=== PATIENT | male | born 1945 | race Caucasian/White ===

== ENCOUNTER 2019-04-03 14:23 | Inpatient (IN) | payer MEDICARE, OTHER ==
[~2019-04-03] VITALS: Ht 182.9 cm; Wt 79.4 kg
--- NOTE | 2019-04-03 14:30 | NUR ---
BIB EMS C/O INCREASING CONFUSION AND WANDERING. PATIENT AOX1-2 WITH CONFUSION, NEEDS ATTENDED, KEPT COMFORTABLE.
[2019-04-03 15:30] LABS: BASOPHILS # (AUTO) 0.1 /CMM (0.0-0.2); BASOPHILS % (AUTO) 1.6 % (0.0-2.0); HEMATOCRIT 33 % (39-51); HEMOGLOBIN 11.2 g/dL (13.5-17.5); LYMPHOCYTES # (AUTO) 1.7 /CMM (0.8-4.8); LYMPHOCYTES % (AUTO) 20.6 % (20.0-44.0); MEAN CORPUSCULAR HGB CONC 34 g/dl (31.0-36.0); MEAN CORPUSCULAR VOLUME 88 fL (80-96); MONOCYTES % (AUTO) 11.7 % (2.0-12.0); NEUTROPHILS # (AUTO) 5.2 /CMM (1.8-8.9); NEUTROPHILS % (AUTO) 61.1 % (43.0-81.0); PLATELET COUNT (AUTO) 391 /CMM (150-450); WHITE BLOOD COUNT (AUTO) 8.5 K/uL (4.3-11.0)
[2019-04-03 15:40] LABS: CALCIUM, SERUM 9.2 mg/dL (8.5-10.1); CARBON DIOXIDE 27 mmol/L (21-32); CHLORIDE 103 mmol/L (98-107); GLUCOSE 114 mg/dL (74-106); POTASSIUM 4.3 mmol/L (3.5-5.1); SODIUM SERUM 138 mmol/L (136-145); UREA NITROGEN, BLOOD 22 mg/dL (7-18)
[2019-04-03 15:57] LABS: ALANINE AMINOTRANSFERASE 16 U/L (12-78); ALBUMIN 3.6 g/dL (3.4-5.0); ALKALINE PHOSPHATASE 84 U/L (46-116); ASPARTATE AMINOTRANSFERASE 20 U/L (15-37); BILIRUBIN,DIRECT 0.1 mg/dL (0.0-0.2); BILIRUBIN,TOTAL 0.3 mg/dL (0.2-1.0); LIPASE 169 U/L (73-393); TOTAL PROTEIN, SERUM 7.5 g/dL (6.4-8.2)
[2019-04-03 15:58] LABS: APPEARANCE,URINE Clear (CLEAR); BILIRUBIN,URINE Negative (NEGATIVE); BLOOD, URINE Trace-intact Ery/uL (NEGATIVE); COLOR,URINE Yellow (YELLOW); KETONES,URINE Negative (NEGATIVE); LEUKOCYTE ESTERASE ,URINE Negative (NEGATIVE); NITRITE, URINE Negative (NEGATIVE); PROTEIN,URINE Negative (NEGATIVE); UGLUCOSE Negative (NEGATIVE); UROBILINOGEN,URINE 0.2 EU/dL (0.2)
[2019-04-03 16:10] LABS: BACTERIA,URINE Rare /HPF (None Seen); RBC,URINE 0-2 /HPF (0-2); SQUAMOUS EPITHELIAL CELL,UR Rare /HPF (None Seen); WBC,URINE 0-2 /HPF (0-3)
[2019-04-03 16:37] LABS: BAND % (MANUAL) 2 % (0.0-5.0); EOSINOPHILS % (MANUAL) 10 % (0-4); LYMPHOCYTES % (MANUAL) 21 % (16-48); MONOCYTES % (MANUAL) 9 % (0-11.0); NEUTROPHILS % (MANUAL) 58 (42-76)
--- NOTE | 2019-04-03 16:41 | NUR ---
CALLED [phone]
--- NOTE | 2019-04-03 16:46 | NUR ---
REGULAR MEAL ORDERED.
--- NOTE | 2019-04-03 17:10 | NUR ---
REPORT GIVEN TO ANGEL AT [facility]
--- NOTE | 2019-04-03 17:24 | NUR ---
PATIENT AMBULATORY, CONFUSED AT TIMES, WAS ABLE TO REDIRECT. NO DISTRESS NOTED.
--- NOTE | 2019-04-03 17:35 | NUR ---
IV removed. Catheter intact and site benign. Pressure and 4x4 applied to site. No bleeding noted.
--- NOTE | 2019-04-03 19:40 | NUR ---
REPORT GIVEN TO HEARING IMPAIRED ITINERANT TEACHER, COPIES OF RESULTS GIVEN. NEEDS ATTENDED. KEPT COMFORTABLE. PATIENT AMBULATORY WITH STEADY GAIT. NO DISTRESS NOTED. LEFT TO [facility] IN STABLE CONDITION.
--- NOTE | 2019-04-03 20:12 | NUR ---
PATIENT REFUSED TO GET ON THE GURNEY, PATIENT WAS AGITATED AND COMBATIVE TO STAFF. DR. VALEDRRAMA MADE AWARE.
--- NOTE | 2019-04-03 20:13 | NUR ---
DISCHARGE CANCELLED. PATIENT WILL BE SEEN BY CRISIS TEAM CLINICIAN, UMESH GARDNER .
[2019-04-03 20:23] LABS: ACETAMINOPHEN 0 ug/ml (10-30); ALCOHOL, BLOOD < 3 mg/dL (0-0); SALICYLATE 1.8 mg/dL (2.8-20.0)
[2019-04-03] MEDS ORDERED: OLANZAPINE 10 MG VIAL IM ONE ×2 (21:03→21:30)
[2019-04-03] MEDS ORDERED: DOCU-141 PO (21:32)
[2019-04-03] MEDS ORDERED: MULT-213 PO (21:32)
[2019-04-03] MEDS ORDERED: ASPI-1169 PO (21:32)
--- NOTE | 2019-04-03 21:33 | NUR ---
REPORT GIVEN TO DENIZ GARDNER.
--- NOTE | 2019-04-03 22:14 | NUR ---
PATIENT TRANSFERRED TO ROOM 214 IN STABLE CONDITION. NO DISTRESS NOTED. NEEDS ATTENDED.
--- NOTE | 2019-04-03 22:35 | NUR ---
RN NOTES: PLACED CALLED TO [facility] AND LEFT MESSAGE TO JOAQUIN SINCLAIR# [phone] REGARDING ABOUT ADMISSION .
[2019-04-03] MEDS ORDERED: MAG HYDROX/AL HYDROX/SIMETH 30 ML UDC PO PRN (23:00)
[2019-04-03] MEDS ORDERED: MAGNESIUM HYDROXIDE 30 ML UDC PO PRN (23:00)
[2019-04-03] MEDS ORDERED: ACETAMINOPHEN 325 MG TABLET PO PRN (23:00)
[2019-04-03] MEDS ORDERED: ZOLPIDEM TARTRATE 5 MG TABLET PO PRN (23:00)
[2019-04-03 23:29] VITALS: BP 132/80
[2019-04-03] MEDS ORDERED: BLOOD SUGAR DIAGNOSTIC 1 EACH STRIP IN ONE (23:30)
--- NOTE | 2019-04-04 00:03 | NUR ---
ADMISSION NOTES: ADMITTED THIS 74Y/O FEMALE PATIENT ADMIT FROM [facility] ,ER / INTIALLY FROM [facility], ADMITTED TO GPS ON 5150 HOLD ,GAVELY DISABLE , PER HOLD GRAVELY DISABLE, CONFUSED,DISORGANIZED AND DISORIENTED, AT THE FACILITY BECAME COMBATIVE TOWARDS STAFF MEMBER,UPON FACE TO FACE ASSESSMENT PATIENT IS A&O X1 , CONFUSED ,DISORGNIZED, UNCOOPERTIVE ,EASILY GETS AGITATED, PT. NEEDS FREQUENTLY REDIRECTIONS DENIES SI /HI AT THIS TIME, PT. IS POOR HISTORIAN, POOR INSIGHT ,POOR JUDGEMENT , PT. REFUSED TO SIGNS ADMISSION CONSENT PAPERS , DUE TO MENTAL STATUS/ CONFUSED, PT. REFUSED INTITAALY BLOOD SUGAR CHECK , ENCOURAGED, EXPLAINED RISKS AND BENEFITS STILL REFUSED, PER PT. I DONT WANTS CHECK , PT. REFUSED SKIN ASSESSMENT ENCOURAGED X3 EXPLINED RISKS AND BENEFITS , STILL REFUSED BOTH MD AWARE AND NOTIFIED OF THE ADMISSION, BELONGINGS CONTRABAND WERE DONE , NURSING ASSESSMENT DONE ,PT. RIGHTS DISCUSS BY AXLE TURNER , PROVIDE THE PT. WITH HANDBOOK, AND MEDICATIONS GUIDE, ENVIRONMENTAL SAFETY CHECK DONE, ENCOURAGED PT. VERBALIZED ANY FEELING CONCERN TO STAFF, ORIENT TO UNIT POLICY, NO ACUTE DISTRESS NOTED,VITAL SIGNS WNL ,DENIES ANY PAIN AT THIS TIME,WILL CONTINUE TO MONITOR FOR Q15 SAFETY AND BEHAVIOR.
[2019-04-04] MEDS: LORAZEPAM 1 MG TABLET PO PRN ×2 (02:27→21:36)
--- NOTE | 2019-04-04 02:30 | NUR ---
RN NOTES: PT. C/O ANXIOUS, PARANOID , RESTLESS , ATIVAN 1 MG PO PRN GIVEN PER PT. REQUEST, WILL CONTINUE TO MONITOR .
--- NOTE | 2019-04-04 05:41 | NUR ---
PATIENT REFUSED BODY ASSESSMENT PATIENT REFUSED FULL BODY SKIN ASSESSMENT BECOMES AGITATED, RESTLESS/ANXIOUS, PARANOID, ENCOURAGED X3 , RISKS AND BENEFITS EXPLAINED, STILL REFUSED, PATIENT CONTINUED TO STRONGLY REFUSE FULL BODY SKIN ASSESSMENT, VISUALLY NOTED UPPER EXTREMITIES WITH SKIN DISCOLORATIONS / BRUISES , PICTURES TAKEN AND PLACED IN THE CHART.WILL CONTINUITY WITH CARE.
--- NOTE | 2019-04-04 05:59 | NUR ---
RN NOTES : PLACED CALL TO [facility] ,LEFT MESSAGE AT THIS NUMBER # [phone] .
--- NOTE | 2019-04-04 06:02 | NUR ---
RN NOTES: PLACED CALLED TO [facility] AND LEFT MESSAGE TO JOAQUIN SINCLAIR# [phone] REGARDING ABOUT ADMISSION
[2019-04-04] MEDS ORDERED: Z GUARD REMEDY 2 OZ OINT TP PRN (06:30)
--- NOTE | 2019-04-04 06:35 | NUR ---
GPS RN CLOSING NOTE: PATIENT EASILY AGITAED , UNCOOPERATIVE,DURING IN SHIFT, NO ACUTE DISTRESS NOTED. DENIES PAIN OR DISCOMFORT ,DENIES SI/HI/AVH AT THIS TIME. SAFETY PRECAUTIONS IMPLEMENTED.ALL NEEDS ATTENDED AND ANTICIPATED, ENCOURGED FOR VERBALIZED ANY FEELING ,BED ALARM ON AND IN LOCKED POSITION. WILL CONTINUE TO MONITOR FOR PT'S SAFETY.
--- NOTE | 2019-04-04 07:30 | NUR ---
received pt. this am in bed.alert and oriented x1.very confused.
[2019-04-04 08:00] VITALS: BP 136/84
[2019-04-04] MEDS: ASPIRIN 81 MG TAB.CHEW PO SCH (10:21)
[2019-04-04] MEDS: MULTIVIT W/MINERALS 1 TAB TABLET PO SCH (10:21)
[2019-04-04] MEDS: DOCUSATE SODIUM 100 MG CAPSULE PO SCH (10:21)
--- NOTE | 2019-04-04 11:30 | NUR ---
in harley chair.cooperative. restless at times.
[2019-04-04 16:00] VITALS: BP 149/90
[2019-04-04 21:08] VITALS: BP 143/82
[2019-04-04] MEDS ORDERED: QUETIAPINE FUMARATE 25 MG TABLET PO SCH (22:00)
[2019-04-05 08:00] VITALS: BP 124/73
[2019-04-05 08:32] LABS: BASOPHILS # (AUTO) 0.1 /CMM (0.0-0.2); BASOPHILS % (AUTO) 1.4 % (0.0-2.0); EOSINOPHILS % (AUTO) 3.3 % (0.0-6.0); HEMATOCRIT 35 % (39-51); HEMOGLOBIN 11.7 g/dL (13.5-17.5); LYMPHOCYTES # (AUTO) 1.1 /CMM (0.8-4.8); MEAN CORPUSCULAR HGB CONC 33 g/dl (31.0-36.0); MEAN CORPUSCULAR VOLUME 88 fL (80-96); MONOCYTES # (AUTO) 0.5 /CMM (0.1-1.30); MONOCYTES % (AUTO) 6.9 % (2.0-12.0); NEUTROPHILS # (AUTO) 5.5 /CMM (1.8-8.9); NEUTROPHILS % (AUTO) 73.4 % (43.0-81.0); PLATELET COUNT (AUTO) 378 /CMM (150-450); RED BLOOD CELL COUNT(AUTO) 4.02 MIL/uL (4.5-6.0); WHITE BLOOD COUNT (AUTO) 7.5 K/uL (4.3-11.0)
[2019-04-05 08:34] LABS: CALCIUM, SERUM 8.9 mg/dL (8.5-10.1); CREATININE 0.9 mg/dL (0.6-1.3); POTASSIUM 4.2 mmol/L (3.5-5.1)
[2019-04-05] MEDS: ASPIRIN 81 MG TAB.CHEW PO SCH (08:41)
[2019-04-05] MEDS: DOCUSATE SODIUM 100 MG CAPSULE PO SCH (08:41)
[2019-04-05] MEDS: MULTIVIT W/MINERALS 1 TAB TABLET PO SCH (08:41)
[2019-04-05 16:03] VITALS: BP 140/87
[2019-04-05 20:07] VITALS: BP 142/77
[2019-04-05] MEDS: QUETIAPINE FUMARATE 25 MG TABLET PO SCH (21:28)
[2019-04-06 08:00] VITALS: BP 137/87
--- NOTE | 2019-04-06 09:00 | NUR ---
RN NOTE-PT CALM AND COOPERATIVE AT THIS TIME DENIES SI/HI NO C/O PAIN OR DISCOMFORT MED COMPLIANT.WILL CONT. TO FOLLOW FOR BEHAVIOR AND SAFETY.
[2019-04-06] MEDS: MULTIVIT W/MINERALS 1 TAB TABLET PO SCH (09:10)
[2019-04-06] MEDS: ASPIRIN 81 MG TAB.CHEW PO SCH (09:11)
[2019-04-06] MEDS: DOCUSATE SODIUM 100 MG CAPSULE PO SCH (09:11)
--- NOTE | 2019-04-06 10:34 | NUR ---
Facility Contact: AUDREY called [facility] ([phone]) and spoke to Hilary who stated that the pt can return to the facility once the pt is stable. AUDREY stated that the pt is far too confused to answer questions on the psychosocial. AUDREY received collateral information from Hilary regarding the pt. She stated that the pts son could not be reached and has not been in contact with pt in over 50 years.
--- NOTE | 2019-04-06 10:34 | NUR ---
Family Contact: SW called the pts son, Cj Augustin ([phone]), and was informed that this is not the pts son's number.
--- NOTE | 2019-04-06 12:54 | NUR ---
Initial Discharge Plan: Pt currently resides at [facility] located at [address] [place] [address]; ([phone]). Per pt, he was unable to state whether he would like to return to the facility. Per Hilary ([phone]) from [facility], pt can return to the facility upon discharge. SW will work with the pt and the MD regarding appropriate discharge planning. SW will form a safe and proper discharge.
--- NOTE | 2019-04-06 14:30 | NUR ---
RN NOTE- TO RADIOLOGY W THIS RN. CT HEAD.
[2019-04-06 16:00] VITALS: BP 120/68
[2019-04-06] MEDS: LORAZEPAM 1 MG TABLET PO PRN (20:06)
--- NOTE | 2019-04-06 20:08 | NUR ---
GPS RN NOTE: AGITATION PATIENT IS RESTLESS & ANXIOUS AT THIS TIME, GETTING AGITATED. PRN ATIVAN 1 MG 1 TAB PO GIVEN. WILL CONTINUE TO MONITOR CLOSELY FOR ANY CHANGES.
[2019-04-06 20:49] VITALS: BP 134/90
[2019-04-06] MEDS: QUETIAPINE FUMARATE 25 MG TABLET PO SCH (21:32)
[2019-04-07] MEDS: Z GUARD REMEDY 2 OZ OINT TP PRN (03:08)
[2019-04-07] MEDS: LORAZEPAM 1 MG TABLET PO PRN ×2 (06:28→20:12)
--- NOTE | 2019-04-07 06:29 | NUR ---
GPS RN NOTE: ANXIETY/AGITATION PATIENT IS ANXIOUS & RESTLESS, BANGING ON DEION CHAIR, AGITATED. ATIVAN 1 MG PO PRN GIVEN ORDERED.
[2019-04-07 08:00] VITALS: BP 129/80
[2019-04-07] MEDS: MULTIVIT W/MINERALS 1 TAB TABLET PO SCH (08:43)
[2019-04-07] MEDS: DOCUSATE SODIUM 100 MG CAPSULE PO SCH (08:43)
[2019-04-07] MEDS: ASPIRIN 81 MG TAB.CHEW PO SCH (08:43)
--- NOTE | 2019-04-07 15:59 | NUR ---
Group Note: Pt was encouraged to attend group therapy on 04/07/19 at 2pm discussing the topic of concerns around discharge plan. Pt appeared to be confused, disoriented and disorganized. Pt was unable to state where he currently was and was unable to determine a discharge plan. SW attempted to inform him that he would be returning to [facility] but the pt appeared to be confused about the placement that he came from. SW deemed the pt inappropriate for group due to his cognitive impairment.
[2019-04-07 16:00] VITALS: BP 170/106
[2019-04-07] MEDS ORDERED: CLONIDINE HCL 0.1 MG TABLET PO STA (16:30)
[2019-04-07] MEDS ORDERED: CLONIDINE HCL 0.1 MG TABLET PO PRN (17:00)
[2019-04-07 18:10] VITALS: BP 101/71
--- NOTE | 2019-04-07 18:50 | NUR ---
RN NOTE :Patient BP 170/110 DEMITRY TECHNICAL MAINTENANCE SPECIALIST NTIFIED WITH NEW ORDER MEDICATED WITH CATAPRES 0.2MG PO , BP 101 /70 .
--- NOTE | 2019-04-07 20:00 | NUR ---
GPS RN NOTE PER AM RN REPORT, PATIENT HAD HIGH BP DURING DAY SHIFT & CATAPRES TAB WAS GIVEN ORDERED. AT 1999, BP IS 134/87, 81, 18, 97.8, 99. WILL CONTINUE TO MONITOR THE PAT. FOR ANY CHANGES.
[2019-04-07 20:09] VITALS: BP 134/87
--- NOTE | 2019-04-07 20:14 | NUR ---
GPS RN NOTE: ANXIETY PATIENT IS VERY ANXIOUS, RESTLESS, PACING THE HALLWAY, EASILY AGITATED. PRN ATIVAN 1 MG 1 TAB PO GIVEN.
[2019-04-07] MEDS: QUETIAPINE FUMARATE 25 MG TABLET PO SCH (22:17)
[2019-04-08 08:00] VITALS: BP 132/79
[2019-04-08] MEDS: DOCUSATE SODIUM 100 MG CAPSULE PO SCH (08:50)
[2019-04-08] MEDS: MULTIVIT W/MINERALS 1 TAB TABLET PO SCH (08:50)
[2019-04-08] MEDS: ASPIRIN 81 MG TAB.CHEW PO SCH (08:50)
[2019-04-08 16:00] VITALS: BP_SYST 120; BP_SYST 149; BP_DIAS 68; BP_DIAS 84
--- NOTE | 2019-04-08 16:04 | NUR ---
GROUP NOTE: Pt was present in group on this day discussing "discharge plan." Pt was sitting in group but was unable to participate due to cognitive impairment. Pt unable to engage in group topic.
--- NOTE | 2019-04-08 18:00 | NUR ---
UP IN DEION CHAIR MOST OF DAY,DUE TO WANDERING AND CONFUSION.
--- NOTE | 2019-04-08 19:20 | NUR ---
GPS RN OPENING NOTES ALERT AND ORIENTED X 1-2. BREATHING REGULAR AND UNLABORED ON ROOM AIR. NO S/S OF PAIN.DISCOMFORT NOTED AT THIS TIME. REMAINED CALM AND COOPERATIVE, MED COMPLIANT. WILL CONTINUE TO MONITOR FOR SAFETY AND BEHAVIOR.
[2019-04-08 20:30] VITALS: BP 156/89
[2019-04-08] MEDS: QUETIAPINE FUMARATE 100 MG TABLET PO SCH (21:17)
[2019-04-08 22:00] VITALS: BP 156/89
[2019-04-08] MEDS: LORAZEPAM 1 MG TABLET PO PRN (23:40)
--- NOTE | 2019-04-08 23:45 | NUR ---
GPS RN NOTES NOTED WITH ANXIETY MANIFESTED BY INABILITY TO STAY STILL, ATIVAN 1MG GIVEN BY MOUTH. NON-PHARMACOLOGICAL INTERVENTIONS PROVIDED. WILL CONTINUE TO MONITOR.
--- NOTE | 2019-04-09 06:15 | NUR ---
GPS RN CLOSING NOTES PATIENT IN BED ASLEEP WITH NO S/S OF DISTRESS NOTED. NO S/S OF PAIN/DISCOMFORT OBSERVED. WILL ENDORSE TO MORNING SHIFT FOR CONTINUITY OF CARE.
[2019-04-09 08:00] VITALS: BP 132/73
[2019-04-09] MEDS: DOCUSATE SODIUM 100 MG CAPSULE PO SCH (08:39)
[2019-04-09] MEDS: MULTIVIT W/MINERALS 1 TAB TABLET PO SCH (08:39)
[2019-04-09] MEDS: ASPIRIN 81 MG TAB.CHEW PO SCH (08:39)
--- NOTE | 2019-04-09 09:13 | NUR ---
RN NOTE: RECEIVED PT SITTING IN DAY ROOM. NO ACUTE DISTRESS NOTED. VSS, AFEBRILE. PT A+OX1. PT HAS THOUGHT BLOCKING AND TANGENTIAL SPEECH. PT HAS DIFFICULTY MAKING NEEDS KNOWN. PT NEEDS FREQUENT REORIENTATION AND DIRECTION. PT DENIES CURRENT SI/HI. PT IS COMPLIANT WITH MEDICATION ADMINISTRATION AND PLAN OF CARE; WILL CONT TO MONITOR PT PER GPS PROTOCOL
--- NOTE | 2019-04-09 15:02 | NUR ---
Group Note: Pt was encouraged to attend group therapy on 04/09/19 at 2pm discussing social supports. Pt appeared to be confused, disoriented and disorganized. Pt was unable to state where he currently was and was unable to discuss the topic. Pt presented in his room and was asleep when the SW woke him up for group and he refused. SW deemed the pt inappropriate for group due to his cognitive impairment.
[2019-04-09 16:00] VITALS: BP 133/78
[2019-04-09 20:05] VITALS: BP 143/94
[2019-04-09] MEDS: QUETIAPINE FUMARATE 100 MG TABLET PO SCH (21:08)
[2019-04-09] MEDS: LORAZEPAM 1 MG TABLET PO PRN (23:07)
--- NOTE | 2019-04-09 23:08 | NUR ---
GPS RN NOTES: PRN ATIVAN UPON DOING ROUNDS PT IS ANXIOUS. CHECKED VITALS WNL. BREATHING EVEN AND UNLABORED. OFFERED ATIVAN 1MG PO PRN ORDERED. PT AGREED AND TOLERATED MEDICATION WELL. CONTINUE TO MONITOR.
[2019-04-10 08:00] VITALS: BP 132/84
[2019-04-10] MEDS: ASPIRIN 81 MG TAB.CHEW PO SCH (08:51)
[2019-04-10] MEDS: DOCUSATE SODIUM 100 MG CAPSULE PO SCH (08:51)
[2019-04-10] MEDS: MULTIVIT W/MINERALS 1 TAB TABLET PO SCH (08:51)
--- NOTE | 2019-04-10 10:03 | NUR ---
GPS RN OPENING NOTE: RECEIVED PT SITTING UP IN BED INTERACTING WITH ROOMMATE. NO ACUTE DISTRESS NOTED. VSS, AFEBRILE. PT AOX1. PT HAS DIFFICULTY MAKING NEEDS KNOWN. PT NEEDS FREQUENT REORIENTATION AND DIRECTION. PT DENIES CURRENT SI/HI. PT IS COMPLIANT WITH MEDICATION ADMINISTRATION AND PLAN OF CARE; WILL CONT TO MONITOR PT PER GPS PROTOCOL
[2019-04-10] MEDS: LORAZEPAM 1 MG TABLET PO PRN (15:46)
[2019-04-10 16:00] VITALS: BP 131/99
--- NOTE | 2019-04-10 16:10 | NUR ---
GPS RN: PRN ATIVAN PT AGITATED, RESTLESS, UNABLE TO SIT STILL. OFFERED ATIVAN PO 1MG ORDERED. WILL CONTINUE TO MONITOR Q15 FOR MOOD, SAFETY AND BEHAVIOR
[2019-04-10] MEDS: QUETIAPINE FUMARATE 100 MG TABLET PO SCH (21:13)
[2019-04-11] MEDS: Z GUARD REMEDY 2 OZ OINT TP PRN (06:36)
[2019-04-11 08:00] VITALS: BP 147/70
[2019-04-11] MEDS: ASPIRIN 81 MG TAB.CHEW PO SCH (08:24)
[2019-04-11] MEDS: MULTIVIT W/MINERALS 1 TAB TABLET PO SCH (08:24)
[2019-04-11] MEDS: DOCUSATE SODIUM 100 MG CAPSULE PO SCH (08:24)
--- NOTE | 2019-04-11 09:00 | NUR ---
RN NOTE- PT CONFUSED WITH EVEN SIMPLE COMMANDS. DOESN'T UNDERSTAND HOW TO SIT OR FOLLOW DIRECTION TO STAND OR EAT. ASSISTED AND PROMPTED W ALL CARE AND ADLS. PT NEEDS FREQUENT REORIENTATION AND DIRECTION. PT DENIES CURRENT SI/HI. PT IS COMPLIANT WITH MEDICATION ADMINISTRATION AND PLAN OF CARE; WILL CONT TO MONITOR PT PER GPS PROTOCOL
[2019-04-11 16:00] VITALS: BP 137/57
[2019-04-11] MEDS: LORAZEPAM 1 MG TABLET PO PRN ×2 (16:24→22:08)
--- NOTE | 2019-04-11 16:28 | NUR ---
RN NOTE-AGITATION/ PT WITH ANXIETY, ATTEMPTING TO CLIMB OUT OF CHAIR, REACHING OUT TO OTHER RESIDENTS AND STAFF. INAPPROPRIATE PHYSICAL CONTACT. ATIVAN 1 MG GIVEN.
--- NOTE | 2019-04-11 17:30 | NUR ---
RN NOTE-AGITATION/RX EFFECTIVENESS/ PRN MEDICATION ATIVAN 1 MG PROVED EFFECTIVE AT DECREASING AGITATION AND BEHAVIORS
[2019-04-11 20:05] VITALS: BP 159/90
[2019-04-11] MEDS: QUETIAPINE FUMARATE 100 MG TABLET PO SCH (22:08)
--- NOTE | 2019-04-11 22:11 | NUR ---
GPS RN NOTES PT AGITATED, RESTLESS, UNCOOPERATIVE. REFUSING REDIRECTION. ATIVAN 1MG GIVEN PO PER ORDER. WILL CONTINUE TO MONITOR.
[2019-04-12 08:00] VITALS: BP 159/69
[2019-04-12] MEDS: LORAZEPAM 1 MG TABLET PO PRN (08:24)
[2019-04-12] MEDS: DOCUSATE SODIUM 100 MG CAPSULE PO SCH (08:24)
[2019-04-12] MEDS: MULTIVIT W/MINERALS 1 TAB TABLET PO SCH (08:24)
[2019-04-12] MEDS: ASPIRIN 81 MG TAB.CHEW PO SCH (08:24)
--- NOTE | 2019-04-12 08:34 | NUR ---
RN NOTE-AGITATION/ PT CLIMBING OOB AND ATTEMPTING TO GRAB AT NURSE AND STAFF. ATIVAN 1 MG GIVEN
--- NOTE | 2019-04-12 09:37 | NUR ---
RN NOTE- RX AGITATION/ PT BEHAVIOR DECREASED AFTER ATIVAN ADFMINISTRATION.
--- NOTE | 2019-04-12 10:15 | NUR ---
RN NOTE- PT CLIMBING OOB AND CHAIR, GRABBING AT STAFF AND PATIENTS. INAPPROPRIATE AT TIMES. ASSISTED AND PROMPTED W ALL CARE AND ADLS. PT NEEDS FREQUENT REORIENTATION AND DIRECTION. PT DENIES CURRENT SI/HI. PT IS COMPLIANT WITH MEDICATION ADMINISTRATION AND PLAN OF CARE; WILL CONT TO MONITOR PT PER GPS PROTOCOL
[2019-04-12 16:00] VITALS: BP 155/95
[2019-04-12 20:24] VITALS: BP 115/65
[2019-04-12] MEDS: QUETIAPINE FUMARATE 100 MG TABLET PO SCH (21:10)
--- NOTE | 2019-04-12 22:10 | NUR ---
GPS RN NOTES: PT REFUSED WEEKLY SKIN PICTURE ASSESSMENT PT REFUSED WEEKLY SKIN PICTURE ASSESSMENT. PT STATED, "NO. ID RATHER NOT.PLS NO." EXPLAIN RISKS AND BENEFITS. PT STILL REFUSED X3. CONTINUE TO MONITOR.
[2019-04-13 08:00] VITALS: BP 152/81
[2019-04-13] MEDS: MULTIVIT W/MINERALS 1 TAB TABLET PO SCH (08:28)
[2019-04-13] MEDS: ASPIRIN 81 MG TAB.CHEW PO SCH (08:28)
[2019-04-13] MEDS: DOCUSATE SODIUM 100 MG CAPSULE PO SCH (08:28)
[2019-04-13] MEDS: LORAZEPAM 1 MG TABLET PO PRN ×2 (08:40→16:10)
--- NOTE | 2019-04-13 08:40 | NUR ---
RN NOTE-AGITATION/ PT W ANXIETY. ATTEMPTS TO GET OOB AND CHAIR AND WALK UNASSISTED. ATIVAN 1 MG GIVEN.
--- NOTE | 2019-04-13 09:00 | NUR ---
RN NOTE- PT ANXIOUS AT TIMES. ASSISTED AND PROMPTED W ALL CARE AND ADLS. ATIVAN GIVEN TO DECREASE SYMPTOMS. PT NEEDS FREQUENT REORIENTATION AND DIRECTION. PT DENIES CURRENT SI/HI. PT IS COMPLIANT WITH MEDICATION ADMINISTRATION AND PLAN OF CARE; WILL CONT TO MONITOR PT PER GPS PROTOCOL
--- NOTE | 2019-04-13 09:54 | NUR ---
RN NOTE- AGITATION RX EFFECTIVE, PT CALM
--- NOTE | 2019-04-13 15:59 | NUR ---
Facility Contact: AUDREY called [facility] ([phone]) and spoke to Margaret and informed her that the pt is going to be discharged on Saturday. Margaret stated that she would send the Physicians report once again.
[2019-04-13 16:00] VITALS: BP 138/90
--- NOTE | 2019-04-13 16:17 | NUR ---
RN NOTE-AGITATION/ PT CLIMBING OUT OF CHAIR, RESTLESS AND IRRITABLE. ATIVAN 1 MG GIVEN AT THIS TIME.
--- NOTE | 2019-04-13 19:00 | NUR ---
GPS RN opening notes Received Pt sitting in gerichair in the hallway. Pt is alert and orientedX1, anxious, forgetful,confused, hyperverbal, disorganized and med compliant. Respiration is normal in room air. No SOB. No S/S of distress noted. Offered fluids and snacks. Pt denies SI/HI at this time. Reality orientation provided. Safety precautions is maintained. Will continue to monitor for mood safety and behavior Q 15 mins checks according to [facility] hospital protocol.
[2019-04-13 20:00] VITALS: BP 152/80
[2019-04-13 20:03] VITALS: BP 152/80
[2019-04-13 20:24] VITALS: BP 149/74
[2019-04-13] MEDS: QUETIAPINE FUMARATE 100 MG TABLET PO SCH (21:31)
--- NOTE | 2019-04-14 07:00 | NUR ---
GPS RN closing notes Pt is resting in bed comfortably. Respiration is normal. No SOB. No S/S of distress noted. Pt is in stable condition. Routine meds were given as ordered. Kept Pt clean, dry and comfortable. All needs met and attended. Safety precautions is maintained. Bed at low position, brakes locked, side rails upX2. Will endorse to morning nurse for SAAD.
[2019-04-14 08:00] VITALS: BP 157/83
[2019-04-14] MEDS: MULTIVIT W/MINERALS 1 TAB TABLET PO SCH (08:35)
[2019-04-14] MEDS: ASPIRIN 81 MG TAB.CHEW PO SCH (08:35)
[2019-04-14] MEDS: DOCUSATE SODIUM 100 MG CAPSULE PO SCH (08:35)
--- NOTE | 2019-04-14 12:20 | NUR ---
Facility Contact: AUDREY called [facility] ([phone]) and spoke to Margaret and informed her that once the chest x ray results are in then the SW will send the report to her.
--- NOTE | 2019-04-14 13:46 | NUR ---
Facility Contact: AUDREY faxed a physicians report with attn to Margaret to the fax number: [phone].
--- NOTE | 2019-04-14 15:59 | NUR ---
Group Note: SW encouraged pt to attend group therapy on 04/14/19 at 2pm discussing reality testing regarding their admission. Pt appears to be confused and disorganized. states that this is the pts baseline. When the SW asked the pt about why he was admitted to the hospital he stated, "I came here because I was coughing." SW informed the pt that he was brought in on a hold and the pt did not believe the SW and believes that his son will pick him up but he has not spoken to his son in years. SW deemed the pt inappropriate for group therapy.
[2019-04-14 16:00] VITALS: BP 125/75
[2019-04-14 20:18] VITALS: BP 147/93
[2019-04-14] MEDS: LORAZEPAM 1 MG TABLET PO PRN (21:33)
[2019-04-14] MEDS: QUETIAPINE FUMARATE 100 MG TABLET PO SCH (22:13)
[2019-04-15 08:00] VITALS: BP 137/88
--- NOTE | 2019-04-15 08:28 | NUR ---
DR. CAMARENA GAVE AN ORDER TO D/C HOLD AND D/C TO [facility] AND TO FOLLOW UP WITH PSYCH AND MEDICAL DOCTORS.
[2019-04-15] MEDS: ASPIRIN 81 MG TAB.CHEW PO SCH (09:06)
[2019-04-15] MEDS: MULTIVIT W/MINERALS 1 TAB TABLET PO SCH (09:06)
[2019-04-15] MEDS: DOCUSATE SODIUM 100 MG CAPSULE PO SCH (09:06)
--- NOTE | 2019-04-15 09:40 | NUR ---
GPS RN OPENING NOTE: RECEIVED PT SITTING UP IN BED. TRANSFERRED TO DEION CHAIR. NO ACUTE DISTRESS NOTED. VSS, AFEBRILE. PT AOX1. PT HAS DIFFICULTY MAKING NEEDS KNOWN. PT NEEDS FREQUENT REORIENTATION AND DIRECTION. PT DENIES CURRENT SI/HI. PT IS COMPLIANT WITH MEDICATION ADMINISTRATION AND PLAN OF CARE; D/C PLANNED FOR TODAY AROUND 1300. WILL CONT TO MONITOR PT PER GPS PROTOCOL
--- NOTE | 2019-04-15 11:35 | NUR ---
Facility Contact: AUDREY faxed the pts prescriptions with attn to Lilliam to the fax number: [phone].
--- NOTE | 2019-04-15 14:13 | NUR ---
Discharge Note: Pt was discharged to [facility] located at [address] [place] [address]; ([phone]). Pt was transported via [facility] for $79 at 5pm. There was no one to notify about the pts discharge other than the returning facility. Upon discharge, the pt appeared to be in a euthymic mood and presented with a calm affect. Pt appeared to be oriented x2 (self and place). Pt denied both suicidal and homicidal ideation as well as auditory and visual hallucinations. Pt will follow up with psychiatrist, Dr. Jacob Mal[place], [place] [address] [place] [address]; . Pt will continue to follow up with his drum tester, Dr. Cecelia Echeverria, located at [address] [place] [address]; ; and a fax of records was sent to: . Pt will be seen on 04/16/19 by 5pm.
[2019-04-15 16:00] VITALS: BP 155/76
--- NOTE | 2019-04-15 18:29 | NUR ---
GPS NETWORK CONTROL TECHNICIAN NOTE: PATIENT IS A 74 YEAR OLD MALE DISCHARGED TO [facility]. PATIENT IS IN STABLE CONDITION. VSS. NO ACUTE DISTRESS NOTED. NO COMPLAINTS. COMPLIANT WITH MEDICATION MANAGEMENT. COOPERATIVE WITH PLAN OF CARE. PSYCHIATRIC TREATMENT PLANS MET. MEDICAL TREATMENT PLANS DEFERRED FOR CONTINUAL MONITORING. DENIES SI/HI VAH AT THE TIME OF DISCHARGE. SKIN CHECK DONE WITH WOUND PICTURES IN CHART. EDUCATED PATIENT ABOUT AFTERCARE WITH COPY PROVIDED. RETURNED PERSONAL BELONGINGS TO PATIENT. MEDICATIONS RECONCILED ALONG WITH PSYCHIATRIC DISCHARGE ORDERS BY DR CAMARENA. DISCHARGE PAPERWORK SIGNED. FOR FOLLOW UP WITH PSYCHIATRIST AND AUTOMATIC LOG CUT OFF [facility]ER WITHIN 1 WEEK. PATIENT LEFT THE [facility] VIA [facility] AT 1755.
== END 2019-04-15 17:55 | DRG 885 ==
LOC: ER 14:30 → GPS 21:49
PROVIDERS: ADMIT Psychiatry & Neurology Psychiatry; ATTEND Student in an Organized Health Care Education/Training Program
DX: F29 Unspecified psychosis not due to a substance or known physiological condition (principal); G93.41 Metabolic encephalopathy; E87.1 Hypo-osmolality and hyponatremia; F03.91 Unspecified dementia, unspecified severity, with behavioral disturbance; E86.0 Dehydration; D63.8 Anemia in other chronic diseases classified elsewhere; I10 Essential (primary) hypertension; F41.9 Anxiety disorder, unspecified; R53.1 Weakness; Z79.899 Other long term (current) drug therapy
CPT/HCPCS: 36415; 70450-TC; 71045-TC; 80048-TC; 80061-TC; 80076-TC; 81000-TC; 83690-TC; 84443-TC; 84484-TC; 85025-TC; 87081-TC; 93970-TC; 97116-TC; G0480; J3490